=== PATIENT | male | born 1965 | race Caucasian/White ===

== ENCOUNTER 2023-07-20 17:30 | Emergency (ER) | payer MEDICARE ==
[~2023-07-20] VITALS: Ht 172.7 cm; Wt 95.7 kg
[2023-07-20 17:57] VITALS: BP 196/90; PULSE 60; RESP 18; TEMP 98.4; O2SAT 95
[2023-07-20 18:35] LABS: +ADD MANUAL DIFF(NO CHRG) NO; BASOPHIL % 0.2 % (0.0-0.2); EOSINOPHIL % 0.3 % (0.0-5.0); LYMPHOCYTES # 0.71 10^3/uL1 (1.0-4.8); LYMPHOCYTES % 8.2 % (24.0-44.0); MEAN CORP HGB 30.2 pg (26-34); MEAN CORP HGB CONCENTRATION 33.3 g/dL (33-36.5); MEAN CORP VOLUME 90.5 fL (78-100); MONOCYTES # 0.6 10^3/uL (0.3-0.8); MONOCYTES % 7.2 % (5.0-12.0); NEUTROPHIL # 7.3 10^3/uL (1.8-7.7); PLATELET COUNT 255 10^3/uL (150-400); RED BLOOD CELL 4.97 10^6/uL (4.50-5.90); RED CELL DISTRIBUTION WIDTH 14.5 % (11.5-14.5); WHITE BLOOD CELL 8.7 10^3/uL (4.5-11.0)
[2023-07-20 18:48] LABS: ALBUMIN(ML) 3.6 g/dL (3.4-5.0); ALBUMIN/GLOBULIN RATIO 0.923; ANION GAP 13.6; BUN/CREATININE RATIO 18.68 (10.0-20.0); CALCIUM 9.6 mg/dL (8.4-10.5); CARBON DIOXIDE 28.5 mmol/L (20.0-32); CREATININE SERUM 0.91 mg/dL (0.59-1.40); EST GFR, NON-AA 85.3 (>/=60); POTASSIUM 4.1 mmol/L (3.6-5.2)
[2023-07-20] MEDS ORDERED: NS 1000ML 1,000 ML ONE (19:12)
[2023-07-20] MEDS ORDERED: COMPAZINE ONE (19:12)
[2023-07-20] MEDS: COMPAZINE IV STA (19:17)
[2023-07-20] MEDS: NS 1000ML 1,000 ML IV STA (19:17)
[2023-07-20] MEDS ORDERED: DECADRON ONE (21:28)
[2023-07-20] MEDS ORDERED: KEPPRA 100 ML IV ONE (21:28)
[2023-07-20] MEDS ORDERED: ROCEPHIN ONE (21:28)
[2023-07-20] MEDS ORDERED: NS 100ML 100 ML IV ONE (21:28)
[2023-07-20] MEDS: DECADRON IV STA (21:39)
[2023-07-20] MEDS: ROCEPHIN 1,000 MG in NS 100ML 100 ML IV STA (21:39)
[2023-07-20] MEDS ORDERED: SUBLIMAZE 100MCG/2ML ONE (22:00)
[2023-07-20 22:01] LABS: BILIRUBIN,URINE NEGATIVE (NEGATIVE); LEUKOCYTE ESTERASE ,URINE NEGATIVE (NEGATIVE); NITRATE,URINE NEGATIVE (NEGATIVE); PH,URINE 5.5 (4.5-8.0); UROBILINOGEN,URINE 0.2 E.U./dL (0.2)
[2023-07-20] MEDS: KEPPRA 100 ML IV STA (22:02)
[2023-07-20 22:04] LABS: APPEARANCE,URINE CLEAR; UA COLOR YELLOW
[2023-07-20] MEDS: SUBLIMAZE 100MCG/2ML IV STA (22:09)
[2023-07-20 23:00] VITALS: BP 152/88; PULSE 60; RESP 18; TEMP 98.4; O2SAT 93
== END 2023-07-20 23:00 | disposition critical access hospital (66) ==
LOC: ER 17:30
DX: G93.5 Compression of brain (principal); H70.91 Unspecified mastoiditis, right ear; I10 Essential (primary) hypertension; Z85.9 Personal history of malignant neoplasm, unspecified; Z92.21 Personal history of antineoplastic chemotherapy; Z92.3 Personal history of irradiation; Z88.5 Allergy status to narcotic agent; Z88.6 Allergy status to analgesic agent
CPT/HCPCS: 99285; 70486; 96365; 96375; 96361; 96368; 70450; 81003; 80053; 85025; 36415; 93005; J7030; J1100; J0780; J1953; J0696 ×2; J3010

== ENCOUNTER 2023-08-20 13:45 | Emergency (ER) | payer MEDICARE ==
[~2023-08-20] VITALS: Ht 172.7 cm; Wt 88.5 kg
[2023-08-20 14:34] VITALS: BP 186/98; PULSE 60; RESP 18; TEMP 97.9; O2SAT 97
[2023-08-20 15:30] LABS: BASOPHIL % 0.4 % (0.0-0.2); EOSINOPHIL # 0.1 10^3/uL (0.0-0.2); EOSINOPHIL % 2.1 % (0.0-5.0); HEMATOCRIT(ML) 40.7 % (37.0-53.0); HEMOGLOBIN 13.6 g/dL (13.9-16.3); LYMPHOCYTES # 0.77 10^3/uL1 (1.0-4.8); LYMPHOCYTES % 14.4 % (24.0-44.0); MEAN CORP HGB 30.8 pg (26-34); MEAN CORP HGB CONCENTRATION 33.4 g/dL (33-36.5); MEAN CORP VOLUME 92.3 fL (78-100); MONOCYTES # 0.6 10^3/uL (0.3-0.8); MONOCYTES % 10.6 % (5.0-12.0); NEUTROPHIL # 3.9 10^3/uL (1.8-7.7); NEUTROPHILS % 71.9 % (41.0-85.0); PLATELET COUNT 203 10^3/uL (150-400); RED BLOOD CELL 4.41 10^6/uL (4.50-5.90); RED CELL DISTRIBUTION WIDTH 14.1 % (11.5-14.5); WHITE BLOOD CELL 5.4 10^3/uL (4.5-11.0)
[2023-08-20] MEDS ORDERED: DILAUDID IV PRN (15:30)
[2023-08-20 15:39] VITALS: BP 166/78; PULSE 61; RESP 18; O2SAT 98
[2023-08-20 15:48] LABS: +ADD MANUAL DIFF(NO CHRG) NO
[2023-08-20 15:51] LABS: ALBUMIN(ML) 3.1 g/dL (3.4-5.0); ALBUMIN/GLOBULIN RATIO 0.861; ANION GAP 10.6; BUN/CREATININE RATIO 24.35 (10.0-20.0); CARBON DIOXIDE 30.8 mmol/L (20.0-32); CREATININE SERUM 0.78 mg/dL (0.59-1.40); EST GFR, NON-AA 101.9 (>/=60); POTASSIUM 4.4 mmol/L (3.6-5.2)
[2023-08-20] MEDS ORDERED: ZOFRAN IV STA (16:23)
[2023-08-20] MEDS ORDERED: DECADRON ONE (16:24)
[2023-08-20] MEDS ORDERED: DILAUDID ONE (16:26)
[2023-08-20] MEDS ORDERED: NS 1000ML 1,000 ML ONE (16:28)
[2023-08-20] MEDS ORDERED: ZOFRAN ONE (16:28)
[2023-08-20] MEDS ORDERED: NS 1000ML 1,000 ML IV ONE (16:30)
[2023-08-20 16:31] VITALS: BP 142/88; PULSE 65; RESP 18; O2SAT 97
[2023-08-20 17:38] VITALS: BP 122/72; PULSE 60; RESP 18; O2SAT 100
[2023-08-20 18:02] VITALS: BP 145/70; PULSE 60; RESP 18; O2SAT 98
[2023-08-21] MEDS ORDERED: DECADRON IV SCH (09:00)
== END 2023-08-20 18:16 | disposition home or self-care (01) ==
LOC: ER 13:45
DX: R11.2 Nausea with vomiting, unspecified (principal); C79.31 Secondary malignant neoplasm of brain; E11.9 Type 2 diabetes mellitus without complications; I10 Essential (primary) hypertension; Z85.818 Personal history of malignant neoplasm of other sites of lip, oral cavity, and pharynx; Z92.21 Personal history of antineoplastic chemotherapy; Z88.5 Allergy status to narcotic agent; Z88.6 Allergy status to analgesic agent
CPT/HCPCS: 99291; 96374; 70470; 96361; 96375; 80053; 85025; 36415; J7030; J1170; J1100; J2405; Q9967